=== PATIENT | male | born 1950 | race Asian ===

== ENCOUNTER → 2016-09-06 | Outpatient (CLI) | payer OTHER ==
--- NOTE | 2016-09-06 18:04 | DX ---
Chest, Two Views at 1428 hours History: Cough, R05. Comparison: May 2015 Findings: Cardiac silhouette is within normal range. Bilateral peribronchial thickening. No pneumonia , congestive heart failure, pleural effusion, or pneumothorax. Impression: 1. Bronchitis. 2. No definite pneumonia.
== END ==
LOC: FIMAGING 14:26
PROVIDERS: ATTEND Family Medicine
DX: J40 Bronchitis, not specified as acute or chronic (principal); R05 Cough